=== PATIENT | male | born 1935 | race African-American/Black ===

== ENCOUNTER 2016-12-16 08:13 | Inpatient (IN) | payer MEDICARE, MEDICAID ==
[~2016-12-16] VITALS: Ht 172.7 cm; Wt 56.2 kg
[2016-12-16] VITALS (15 sets, daily range): BP systolic 86–133; BP diastolic 50–79
[2016-12-16] MEDS ORDERED: AMIKACIN IV ONE (08:30)
[2016-12-16] MEDS ORDERED: NS 1000ml 2,200 ML IVLG ONE (08:30)
[2016-12-16] MEDS ORDERED: NS IV ONE (08:30)
[2016-12-16] MEDS ORDERED: Vancomycin 1.5gm/D5W 300ml 325 ML IVPB ONE (08:30)
--- NOTE | 2016-12-16 08:38 | Emergency Room Report ---
History of Present Illness General Chief Complaint: Altered Level of Consciousness Source: Medical Record Present Illness HPI Patient presents from nursing facility in acute respiratory failure Patient's tachypneic Decreased and shallow breath sounds Absence of any Reflex Patient also presents with high fever Patient is nonverbal, history of present illness is limited Upon arrival the patient required central line in airway intubation placement Please note for specifics Patient has multiple comorbidities including decubitus ulcers Right lower extremity amputation Unknown exactly the duration of onset of symptoms The patient appeared to be altered and febrile and sent to the ER by paramedics Allergies: Coded Allergies: CODEINE (Unverified Allergy, Unknown, 12/16/16) Patient History Limited by: medical condition Past Medical History: see triage record Pertinent Family History: unable to obtain Reviewed Nursing Documentation: PMH: Agreed, PSxH: Agreed Nursing Documentation-PMH Past Medical History: No History, Except For Hx Hypertension: Yes Hx Neurological Problems: Yes - Parkinson's BPH Hx Cerebrovascular Accident: Yes Review of Systems All Other Systems: limited - Other than the ones mentioned in the history of present illness all others are reviewed however they do stay limited due to the patient's mental status Physical Exam Vital Signs Date Time Temp Pulse Resp B/P Pulse Ox O2 Delivery O2 Flow Rate FiO2 12/16/16 08:10 100.9 122 28 120/64 97 Non-Rebreather 15.0 Sp02 EP Interpretation: reviewed, normal General Appearance: severe distress - Patient impending respiratory failure, absent gag reflex Head: normocephalic, atraumatic Eyes: bilateral eye PERRL - sluggishly ENT: dry mucus membranes Neck: supple, thyroid normal Respiratory: decreased breath sounds - Impending respiratory failure, decreased breath sounds, no gag reflex Cardiovascular #1: no edema, tachycardia Gastrointestinal: soft, no mass Musculoskeletal: other - Right below the hip amputation, patient has mild flexure of the left upper extremity, otherwise does not move or respond to stimuli Neurologic: other - GCS of 3 Skin: other - decubitus ulcers Lymphatic: no adenopathy Procedures Critical Care Time Critical Care Time 50 minutes for initial critical presentation Multiple reevaluation Speaking with lead front end developer not including any procedural time Central Line Central Line : Consent: Emergent Central Line Lumen: triple Maximal Sterile Barrier Tech: yes cap, yes mask, yes sterile gown, yes sterile gloves, yes large sterile sheet, yes hand hygiene, yes chlorhexidine prep Central Line Postion: femoral (L) Anesthesia: Lidocaine cc's of anesthesia: 2 Complications: none Central Line Post Position: sutured Attempts: One Patient Tolerated: Well Complications: None Intubation Intubation : Consent: Emergent Tube Size (cm): 8.5 Medications: Succinylcholine Breath Sounds after Intubation: equal Intubation Complications: no complications Post Intubation Xray: Yes Progress/Xray Impression: refer to report Attempts: One Patient Tolerated: Well Complications: None Medical Decision Making Diagnostic Impression: Primary Impression: Severe sepsis Additional Impressions: Respiratory failure Pneumonia ER Course Patient presents in acute respiratory distress/failure Multiple differentials, including but not limited to sepsis, severe sepsis, metabolic pathology entertained Patient did have a documented fever her Meet criteria for severe sepsis with high white blood for count and lactic acid Patient was also initially hypotensive Acute intervention is taken Initially CT scan of the head also want to be obtained however patient is extremely critical and unstable for CAT scan imaging at this time Patient him in to ICU for further inpatient care, Labs Test 12/16/16 08:15 12/16/16 08:30 12/16/16 09:18 12/16/16 09:20 White Blood Count 12.7 K/UL (4.8-10.8) Red Blood Count 4.03 M/UL (4.70-6.10) Hemoglobin 9.5 G/DL (14.2-18.0) Hematocrit 32.6 % (42.0-52.0) Mean Corpuscular Volume 81 FL (80-99) Mean Corpuscular Hemoglobin 23.7 PG (27.0-31.0) Mean Corpuscular Hemoglobin Concent 29.3 G/DL (32.0-36.0) Red Cell Distribution Width 17.8 % (11.6-14.8) Platelet Count 607 K/UL (150-450) Mean Platelet Volume 5.1 FL (6.5-10.1) Neutrophils (%) (Auto) % (45.0-75.0) Lymphocytes (%) (Auto) % (20.0-45.0) Monocytes (%) (Auto) % (1.0-10.0) Eosinophils (%) (Auto) % (0.0-3.0) Basophils (%) (Auto) % (0.0-2.0) Differential Total Cells Counted 100 Neutrophils % (Manual) 87 % (45-75) Lymphocytes % (Manual) 8 % (20-45) Monocytes % (Manual) 1 % (1-10) Eosinophils % (Manual) 0 % (0-3) Basophils % (Manual) 0 % (0-2) Band Neutrophils 4 % (0-8) Platelet Estimate Increased Platelet Morphology Normal Hypochromasia 1+ Anisocytosis 1+ Prothrombin Time 12.5 SEC (9.30-11.50) Prothromb Time International Ratio 1.2 (0.9-1.1) Activated Partial Thromboplast Time 29 SEC (23-33) Sodium Level 150 mEQ/L (135-145) Potassium Level 4.3 mEQ/L (3.4-4.9) Chloride Level 109 mEQ/L (98-107) Carbon Dioxide Level 19 mEQ/L (20-30) Anion Gap 22 (5-15) Blood Urea Nitrogen 30 mg/dL (7-23) Creatinine 0.9 mg/dL (0.7-1.2) Estimat Glomerular Filtration Rate mL/min (>60) Glucose Level 153 mg/dL (74-106) Lactic Acid Level 5.00 mmol/L (0.66-2.22) 3.90 mmol/L (0.66-2.22) Calcium Level 8.5 mg/dL (8.6-10.2) Total Bilirubin 0.4 mg/dL (0.0-1.2) Aspartate Amino Transf (AST/SGOT) 39 U/L (5-40) Alanine Aminotransferase (ALT/SGPT) 23 U/L (3-41) Alkaline Phosphatase 437 U/L (40-129) Total Creatine Kinase 116 U/L (38-174) Creatine Kinase MB < 1.5 ng/mL (< 6.7) Creatine Kinase MB Relative Index 1.2 Troponin I < 0.30 ng/mL (<=0.30) Pro-B-Type Natriuretic Peptide 1429 pg/mL (0-450) Total Protein 6.4 g/dL (6.6-8.7) Albumin 2.5 g/dL (3.5-5.2) Globulin 3.9 g/dL Albumin/Globulin Ratio 0.6 (1.0-2.7) Lipase 9 U/L (< 60) Urine Color Yellow Urine Appearance Clear Urine pH 6 (4.5-8.0) Urine Specific [place] 1.015 (1.005-1.035) Urine Protein 3+ (NEGATIVE) Urine Glucose (UA) Negative (NEGATIVE) Urine Ketones Negative (NEGATIVE) Urine Occult Blood 4+ (NEGATIVE) Urine Nitrite Negative (NEGATIVE) Urine Bilirubin Negative (NEGATIVE) Urine Urobilinogen 1 MG/DL (0.0-1.0) Urine Leukocyte Esterase 2+ (NEGATIVE) Urine RBC 2-4 /HPF (0 - 0) Urine WBC 10-15 /HPF (0 - 0) Urine Squamous Epithelial Cells Few /LPF (NONE/OCC) Urine Bacteria Few /HPF (NONE) Arterial Blood pH 7.440 (7.350-7.450) Arterial Blood Partial Pressure CO2 24.5 mmHg (35.0-45.0) Arterial Blood Partial Pressure O2 339.2 mmHg (75.0-100.0) Arterial Blood HCO3 16.5 mmol/L (22.0-26.0) Arterial Blood Oxygen Saturation 99.4 % (92.0-98.0) Arterial Blood Base Excess -6.5 Nolberto Test Positive Test 12/17/16 04:30 White Blood Count 12.9 K/UL (4.8-10.8) Red Blood Count 3.01 M/UL (4.70-6.10) Hemoglobin 7.2 G/DL (14.2-18.0) Hematocrit 24.2 % (42.0-52.0) Mean Corpuscular Volume 80 FL (80-99) Mean Corpuscular Hemoglobin 23.9 PG (27.0-31.0) Mean Corpuscular Hemoglobin Concent 29.7 G/DL (32.0-36.0) Red Cell Distribution Width 17.9 % (11.6-14.8) Platelet Count 393 K/UL (150-450) Mean Platelet Volume 4.9 FL (6.5-10.1) Neutrophils (%) (Auto) % (45.0-75.0) Lymphocytes (%) (Auto) % (20.0-45.0) Monocytes (%) (Auto) % (1.0-10.0) Eosinophils (%) (Auto) % (0.0-3.0) Basophils (%) (Auto) % (0.0-2.0) Sodium Level 150 mEQ/L (135-145) Potassium Level 3.5 mEQ/L (3.4-4.9) Chloride Level 113 mEQ/L (98-107) Carbon Dioxide Level 17 mEQ/L (20-30) Anion Gap 20 (5-15) Blood Urea Nitrogen 22 mg/dL (7-23) Creatinine 0.8 mg/dL (0.7-1.2) Estimat Glomerular Filtration Rate mL/min (>60) Glucose Level 108 mg/dL (74-106) Lactic Acid Level 3.70 mmol/L (0.66-2.22) Calcium Level 8.4 mg/dL (8.6-10.2) EKG Diagnostic Results Rate: tachycardiac Rhythm: other ST Segments: other - nonspecific ST and T-wave changes Rhythm Strip Diag. Results EP Interpretation: yes Rate: 110 Rhythm: no PVC's, no ectopy, other - sinus tach Chest X-Ray Diagnostic Results EP Interpretation: Yes Findings: no effusion, no pneumothorax, other - ET tube above the gia, left upper lobe infiltrate no acute bony abnormalities Number of Views: 1 Last Vital Signs Date Time Temp Pulse Resp B/P Pulse Ox O2 Delivery O2 Flow Rate FiO2 12/16/16 08:19 122 20 104/59 12/16/16 08:10 100.9 97 Non-Rebreather 15.0 Status: improved Disposition: ADMITTED INPATIENT Condition: Critical AMEYA DAIGLE D.O. December 16, 2016 08:37
[2016-12-16] MEDS ORDERED: Amikacin 500mg/2mL Inj ONE (08:52)
[2016-12-16 08:53] LABS: MEAN CORPUSCULAR HEMOGLOBIN 23.7 PG (27.0-31.0); MEAN CORPUSCULAR HGB CONC 29.3 G/DL (32.0-36.0); MEAN CORPUSCULAR VOLUME 81 FL (80-99); MEAN PLATELET VOLUME 5.1 FL (6.5-10.1); PLATELET COUNT 607 K/UL (150-450); RED BLOOD COUNT 4.03 M/UL (4.70-6.10); RED CELL DISTRIBUTION WIDTH 17.8 % (11.6-14.8); WHITE BLOOD COUNT 12.7 K/UL (4.8-10.8)
[2016-12-16 09:04] LABS: APPEARANCE,URINE CLEAR; KETONES,URINE NEGATIVE (NEGATIVE); LEUKOCYTE ESTERASE ,URINE 2+ (NEGATIVE); NITRITE,URINE NEGATIVE (NEGATIVE); PH,URINE 6 (4.5-8.0); PROTEIN,URINE 3+ (NEGATIVE); UROBILINOGEN,URINE 1 MG/DL (0.0-1.0)
[2016-12-16 09:08] LABS: TROPONIN I < 0.30 ng/mL (<=0.30)
[2016-12-16 09:09] LABS: ALANINE AMINOTRANSFERASE 23 U/L (3-41); ALBUMIN/GLOBULIN RATIO 0.6 (1.0-2.7); ANION GAP 22 (5-15); ASPARTATE AMINO TRANSFERASE 39 U/L (5-40); CALCIUM 8.5 mg/dL (8.6-10.2); CARBON DIOXIDE 19 mEQ/L (20-30); CHLORIDE 109 mEQ/L (98-107); CREATININE 0.9 mg/dL (0.7-1.2); HEMOLYSIS 7; LIPASE 9 U/L (< 60); POTASSIUM 4.3 mEQ/L (3.4-4.9); SODIUM 150 mEQ/L (135-145); TOTAL PROTEIN 6.4 g/dL (6.6-8.7)
[2016-12-16 09:14] LABS: INR 1.2 (0.9-1.1); PROTHROMBIN TIME 12.5 SEC (9.30-11.50)
[2016-12-16 09:17] LABS: REFLEX LACTIC ACID YES OR NO YES
[2016-12-16 09:18] LABS: BACTERIA,URINE FEW /HPF; SQUAMOUS EPITHELIAL CELL,UR FEW /LPF (NONE/OCC)
[2016-12-16 09:19] LABS: CKMB < 1.5 ng/mL (< 6.7)
[2016-12-16 09:21] LABS: ABG PCO2 24.5 mmHg (35.0-45.0)
[2016-12-16 09:22] LABS: ABG ALLEN TEST POSITIVE; ABG BASE EXCESS -6.5
[2016-12-16 10:06] LABS: ANISOCYTOSIS 1+; BAND NEUTROPHILS % (MANUAL) 4 % (0-8); BASOPHILS % (MANUAL) 0 % (0-2); EOSINOPHILS % (MANUAL) 0 % (0-3); HYPOCHROMASIA 1+; LYMPHOCYTES % (MANUAL) 8 % (20-45); NEUTROPHILS % (MANUAL) 87 % (45-75); PLATELET ESTIMATE INCREASED; PLATELET MORPHOLOGY NORMAL; TOTAL CELLS COUNTED 100
[2016-12-16] MEDS ORDERED: METOPROLOL TART50 M1 ORAL (10:20)
[2016-12-16] MEDS ORDERED: PROSCAR5 MG ORAL (10:20)
[2016-12-16] MEDS ORDERED: POTASSIUM CHLO10 ME3 ORAL (10:20)
[2016-12-16] MEDS ORDERED: NORCO 5-325 TA1 EAC1 ORAL (10:20)
[2016-12-16] MEDS ORDERED: SINEMET 25-1001 EAC1 ORAL (10:20)
[2016-12-16] MEDS ORDERED: FLEET ENEMA133 ML RECTAL (10:20)
[2016-12-16] MEDS ORDERED: SENNA8.6 M2 PO (10:20)
[2016-12-16] MEDS ORDERED: SIMETHICONE80 MG ORAL (10:20)
[2016-12-16] MEDS ORDERED: ALBUTEROL2.5 MG/3 M INH (10:20)
[2016-12-16] MEDS ORDERED: MIRALAX17 G2 ORAL (10:20)
[2016-12-16] MEDS ORDERED: COLACE100 MG ORAL (10:20)
[2016-12-16] MEDS ORDERED: DULCOLAX10 MG RC (10:20)
[2016-12-16] MEDS ORDERED: TRAMADOL HCL50 MG ORAL (10:20)
[2016-12-16] MEDS ORDERED: MIRTAZAPINE15 MG ORAL (10:20)
[2016-12-16] MEDS ORDERED: TAMSULOSIN HCL0.4 MG ORAL (10:20)
[2016-12-16] MEDS ORDERED: ZOCOR20 M1 ORAL (10:20)
[2016-12-16] MEDS ORDERED: ZOFRAN4 M1 ORAL (10:20)
[2016-12-16] MEDS ORDERED: PRO-STAT LIQUID30 ML ORAL (10:20)
[2016-12-16] MEDS ORDERED: MULTIVITAMINS1 EAC8 ORAL (10:20)
[2016-12-16] MEDS ORDERED: SORBITOL 70%30 ML PO (10:20)
[2016-12-16] MEDS ORDERED: PROTONIX40 MG ORAL (10:20)
[2016-12-16] MEDS ORDERED: ARTIFICIAL TEAR15 M2 OP (10:20)
[2016-12-16] MEDS ORDERED: PLAVIX75 MG ORAL (10:20)
[2016-12-16] MEDS ORDERED: TYLENOL650 MG/20. ORAL (10:20)
--- NOTE | 2016-12-16 11:44 | Diagnostic Imaging Report ---
Indication: Chest Pain Comparison: 5 [id number] A single view chest radiograph was obtained. Findings: Infiltrate in the left upper lobe demonstrated. There is hazy left basilar opacity present. Endotracheal tube is 2 cm above the gia. Some shifting of the heart to the left noted as well indicative of volume loss. Bones are osteopenic. Impression: Left basilar atelectasis and suspected pleural effusion. Left perihilar and upper lobe infiltrate likely pneumonia. Endotracheal tube in good position
[2016-12-16] MEDS ORDERED: Norco 5mg/325mg tab ORAL PRN (13:30)
[2016-12-16] MEDS ORDERED: Simethicone 80mg tab NG PRN (13:30)
[2016-12-16] MEDS ORDERED: Albuterol ud Inhalation HHN PRN (13:30)
[2016-12-16] MEDS ORDERED: traMADol 50mg tab NG PRN (13:30)
[2016-12-16] MEDS ORDERED: Norco 5mg/325mg tab NG PRN (14:09)
[2016-12-16] MEDS ORDERED: Acetaminophen 650mg/20.3ml GT PRN (14:15)
[2016-12-16] MEDS ORDERED: Succinylcholine 20mg/ml 10ml vial ONE (14:50)
[2016-12-16] MEDS: Sinemet 25/100 tab NG SCH (17:15)
[2016-12-16] MEDS: Artificial Tears 1.4% Op Soln BOTH EYES SCH (17:15)
[2016-12-16] MEDS: Docusate 100mg/10ml Liq GT SCH (17:15)
[2016-12-16] MEDS ORDERED: Sorbitol Solution UD 30ml NG PRN (18:00)
[2016-12-16] MEDS: Metoprolol 50mg tab NG SCH (18:00)
[2016-12-16] MEDS ORDERED: Docusate 250mg cap ORAL SCH (18:00)
[2016-12-16] MEDS ORDERED: Piperacillin/Tazobactam 3.375 GM in D5W 110 ML IVPB SCH (18:00)
--- NOTE | 2016-12-16 19:28 | Consultation ---
DATE OF CONSULTATION: 12/16/2016 INFECTIOUS DISEASES CONSULTATION CONSULTING PHYSICIAN: Jessica Thomas M.D. REFERRING PHYSICIAN: Javad Knight M.D. REASON FOR CONSULTATION: Pneumonia. HISTORY OF PRESENTING ILLNESS: This is an 81-year-old gentleman with history of decubitus ulcers, status post right leg amputation, Parkinson disease, hypertension, and CVA, who came in with decreased and shallow breath sounds. He has been intubated in the ER and an Infectious Diseases consultation has been obtained for antibiotics. PAST MEDICAL HISTORY: 1. History of hypertension. 2. Parkinson disease. 3. Benign prostatic hypertrophy. 4. CVA. MEDICATIONS: In the ER, he has received intravenous vancomycin and amikacin. ALLERGIES: He is allergic to codeine. SOCIAL HISTORY: Unknown. FAMILY HISTORY: Unknown. REVIEW OF SYSTEMS: Unable to obtain currently. PHYSICAL EXAMINATION: VITAL SIGNS: Temperature of 98.3 degrees, T-max of 100.9 degrees, pulse of 115, respiratory rate 20, blood pressure 133/79, and O2 saturation of 98%. HEENT: Pupils equally reactive to light and accommodation. Mouth appears clean without thrush. NECK: Supple. No adenopathy. No JVD. CARDIOVASCULAR: Regular rate and rhythm. No murmurs. LUNGS: Clear to auscultation bilaterally. No crackles. No wheezes. ABDOMEN: Soft and nontender. No organomegaly. EXTREMITIES: No cyanosis, no clubbing, no edema. Right stump at the hip is clean. Left groin catheter noted. LABORATORY DATA: White count 12.7, hemoglobin 9.5, hematocrit 32.6, MCV 81, platelet count of 607,000, and neutrophils of 87%. Sodium 150, potassium 4.3, chloride 109, bicarb 19, BUN 30, creatinine 0.9, glucose 153, and calcium 8.5. Total bilirubin 0.4. AST 39, ALT 23, and alkaline phosphatase 437. CK of 116 and CK-MB less than 1.5. Troponin less than 0.3. Beta natriuretic peptide 1429. Total protein 6.4. Albumin 2.5. Lipase of 9. Urine WBCs 10 to 15. Urine cultures are pending. Blood cultures are pending. ASSESSMENT: 1. This is an 81-year-old gentleman with history of hypertension and Parkinson's disease, who comes in with respiratory failure. 2. We would like to rule out pneumonia as a possibility. 3. We would also like to rule out urinary tract infection as a possibility. PLAN: 1. Start the patient on vancomycin and Zosyn. 2. We will order sputum for Gram stain and culture. 3. We will follow up cultures and adjust antibiotics accordingly. I would like to thank, Dr. Knight, for this consultation. Jessica Thomas M.D. DR: DANNI JOB#: [id number] CC: Javad Knight M.D.; Fax#: [phone]
[2016-12-16] MEDS ORDERED: Zolpidem 5mg tab NG PRN (21:00)
[2016-12-16] MEDS: Vancomycin 750mg/D5W 275ml IVPB SCH ×2 (21:11)
[2016-12-16] MEDS: Heparin 5000 units/ml inj SUBQ SCH (21:12)
[2016-12-16] MEDS: Tamsulosin 0.4mg cap NGT SCH (21:16)
[2016-12-17] VITALS (18 sets, daily range): BP systolic 67–110; BP diastolic 47–66
[2016-12-17] MEDS: Metoprolol 50mg tab NG SCH ×2 (05:37→18:33)
[2016-12-17 06:38] LABS: MEAN CORPUSCULAR HEMOGLOBIN 23.9 PG (27.0-31.0); MEAN CORPUSCULAR HGB CONC 29.7 G/DL (32.0-36.0); MEAN CORPUSCULAR VOLUME 80 FL (80-99); MEAN PLATELET VOLUME 4.9 FL (6.5-10.1); PLATELET COUNT 393 K/UL (150-450); RED BLOOD COUNT 3.01 M/UL (4.70-6.10); RED CELL DISTRIBUTION WIDTH 17.9 % (11.6-14.8); WHITE BLOOD COUNT 12.9 K/UL (4.8-10.8)
[2016-12-17 07:25] LABS: REFLEX LACTIC ACID YES OR NO YES
[2016-12-17 07:31] LABS: ANION GAP 20 (5-15); CALCIUM 8.4 mg/dL (8.6-10.2); CARBON DIOXIDE 17 mEQ/L (20-30); CHLORIDE 113 mEQ/L (98-107); CREATININE 0.8 mg/dL (0.7-1.2); HEMOLYSIS 2; POTASSIUM 3.5 mEQ/L (3.4-4.9); SODIUM 150 mEQ/L (135-145)
--- NOTE | 2016-12-17 08:01 | History & Physical ---
History and Physical History & Physicial HISTORY OF PRESENTING ILLNESS: Chronically ill 81-year-old gentleman with history of Parkinsons disease, hypertension, and CVA, who came in with respiratory failure and sepsis. Patient intubated in the ER and admitted to ICU for ventilator management and antibiotics PAST MEDICAL HISTORY: 1. History of hypertension. 2. Parkinson disease. 3. Benign prostatic hypertrophy. 4. CVA. 5. Right leg amputation 6. decubitus ulcers MEDICATIONS: reviewed ALLERGIES: codeine. SOCIAL HISTORY: Unknown. FAMILY HISTORY: Unknown. REVIEW OF SYSTEMS: Unable PHYSICAL EXAMINATION: VITAL SIGNS: reviewed HEENT: Pupils equally reactive to light and accommodation. intubated NECK: Supple. No adenopathy. No JVD. CARDIOVASCULAR: Regular rate and rhythm. No murmurs. LUNGS: coarse breath sounds ABDOMEN: Soft and nontender. No organomegaly. EXTREMITIES: No cyanosis, no clubbing, no edema. Right stump at the hip is clean. Left groin catheter noted. LABORATORY DATA: Labs Test 12/16/16 08:15 12/16/16 08:30 12/16/16 09:18 12/16/16 09:20 White Blood Count 12.7 K/UL (4.8-10.8) Red Blood Count 4.03 M/UL (4.70-6.10) Hemoglobin 9.5 G/DL (14.2-18.0) Hematocrit 32.6 % (42.0-52.0) Mean Corpuscular Volume 81 FL (80-99) Mean Corpuscular Hemoglobin 23.7 PG (27.0-31.0) Mean Corpuscular Hemoglobin Concent 29.3 G/DL (32.0-36.0) Red Cell Distribution Width 17.8 % (11.6-14.8) Platelet Count 607 K/UL (150-450) Mean Platelet Volume 5.1 FL (6.5-10.1) Neutrophils (%) (Auto) % (45.0-75.0) Lymphocytes (%) (Auto) % (20.0-45.0) Monocytes (%) (Auto) % (1.0-10.0) Eosinophils (%) (Auto) % (0.0-3.0) Basophils (%) (Auto) % (0.0-2.0) Differential Total Cells Counted 100 Neutrophils % (Manual) 87 % (45-75) Lymphocytes % (Manual) 8 % (20-45) Monocytes % (Manual) 1 % (1-10) Eosinophils % (Manual) 0 % (0-3) Basophils % (Manual) 0 % (0-2) Band Neutrophils 4 % (0-8) Platelet Estimate Increased Platelet Morphology Normal Hypochromasia 1+ Anisocytosis 1+ Prothrombin Time 12.5 SEC (9.30-11.50) Prothromb Time International Ratio 1.2 (0.9-1.1) Activated Partial Thromboplast Time 29 SEC (23-33) Sodium Level 150 mEQ/L (135-145) Potassium Level 4.3 mEQ/L (3.4-4.9) Chloride Level 109 mEQ/L (98-107) Carbon Dioxide Level 19 mEQ/L (20-30) Anion Gap 22 (5-15) Blood Urea Nitrogen 30 mg/dL (7-23) Creatinine 0.9 mg/dL (0.7-1.2) Estimat Glomerular Filtration Rate mL/min (>60) Glucose Level 153 mg/dL (74-106) Lactic Acid Level 5.00 mmol/L (0.66-2.22) 3.90 mmol/L (0.66-2.22) Calcium Level 8.5 mg/dL (8.6-10.2) Total Bilirubin 0.4 mg/dL (0.0-1.2) Aspartate Amino Transf (AST/SGOT) 39 U/L (5-40) Alanine Aminotransferase (ALT/SGPT) 23 U/L (3-41) Alkaline Phosphatase 437 U/L (40-129) Total Creatine Kinase 116 U/L (38-174) Creatine Kinase MB < 1.5 ng/mL (< 6.7) Creatine Kinase MB Relative Index 1.2 Troponin I < 0.30 ng/mL (<=0.30) Pro-B-Type Natriuretic Peptide 1429 pg/mL (0-450) Total Protein 6.4 g/dL (6.6-8.7) Albumin 2.5 g/dL (3.5-5.2) Globulin 3.9 g/dL Albumin/Globulin Ratio 0.6 (1.0-2.7) Lipase 9 U/L (< 60) Urine Color Yellow Urine Appearance Clear Urine pH 6 (4.5-8.0) Urine Specific [place] 1.015 (1.005-1.035) Urine Protein 3+ (NEGATIVE) Urine Glucose (UA) Negative (NEGATIVE) Urine Ketones Negative (NEGATIVE) Urine Occult Blood 4+ (NEGATIVE) Urine Nitrite Negative (NEGATIVE) Urine Bilirubin Negative (NEGATIVE) Urine Urobilinogen 1 MG/DL (0.0-1.0) Urine Leukocyte Esterase 2+ (NEGATIVE) Urine RBC 2-4 /HPF (0 - 0) Urine WBC 10-15 /HPF (0 - 0) Urine Squamous Epithelial Cells Few /LPF (NONE/OCC) Urine Bacteria Few /HPF (NONE) Arterial Blood pH 7.440 (7.350-7.450) Arterial Blood Partial Pressure CO2 24.5 mmHg (35.0-45.0) Arterial Blood Partial Pressure O2 339.2 mmHg (75.0-100.0) Arterial Blood HCO3 16.5 mmol/L (22.0-26.0) Arterial Blood Oxygen Saturation 99.4 % (92.0-98.0) Arterial Blood Base Excess -6.5 Nolberto Test Positive Test 12/17/16 04:30 White Blood Count 12.9 K/UL (4.8-10.8) Red Blood Count 3.01 M/UL (4.70-6.10) Hemoglobin 7.2 G/DL (14.2-18.0) Hematocrit 24.2 % (42.0-52.0) Mean Corpuscular Volume 80 FL (80-99) Mean Corpuscular Hemoglobin 23.9 PG (27.0-31.0) Mean Corpuscular Hemoglobin Concent 29.7 G/DL (32.0-36.0) Red Cell Distribution Width 17.9 % (11.6-14.8) Platelet Count 393 K/UL (150-450) Mean Platelet Volume 4.9 FL (6.5-10.1) Neutrophils (%) (Auto) % (45.0-75.0) Lymphocytes (%) (Auto) % (20.0-45.0) Monocytes (%) (Auto) % (1.0-10.0) Eosinophils (%) (Auto) % (0.0-3.0) Basophils (%) (Auto) % (0.0-2.0) Sodium Level 150 mEQ/L (135-145) Potassium Level 3.5 mEQ/L (3.4-4.9) Chloride Level 113 mEQ/L (98-107) Carbon Dioxide Level 17 mEQ/L (20-30) Anion Gap 20 (5-15) Blood Urea Nitrogen 22 mg/dL (7-23) Creatinine 0.8 mg/dL (0.7-1.2) Estimat Glomerular Filtration Rate mL/min (>60) Glucose Level 108 mg/dL (74-106) Lactic Acid Level 3.70 mmol/L (0.66-2.22) Calcium Level 8.4 mg/dL (8.6-10.2) ASSESSMENT: 1. History of hypertension. 2. Parkinson disease. 3. Benign prostatic hypertrophy. 4. CVA. 5. Right leg amputation 6. decubitus ulcers 7. sepsis 8. lactic acidemia 9. anemia 10. hypernatremia PLAN transfuse iv antibiotics ventilator management feeds hypotonic fluids transfer to [facility] when stable MEAGHAN CARD December 17, 2016 08:01
[2016-12-17] MEDS ORDERED: Multivitamin w/Minerals tab ORAL SCH (09:00)
[2016-12-17] MEDS ORDERED: Fleet's Enema 133ml RECTAL PRN (09:00)
[2016-12-17] MEDS: Heparin 5000 units/ml inj SUBQ SCH ×2 (09:00→21:08)
[2016-12-17 09:47] LABS: MEAN CORPUSCULAR HEMOGLOBIN 23.8 PG (27.0-31.0); MEAN CORPUSCULAR HGB CONC 29.6 G/DL (32.0-36.0); MEAN CORPUSCULAR VOLUME 80 FL (80-99); PLATELET COUNT 392 K/UL (150-450); RED BLOOD COUNT 3.03 M/UL (4.70-6.10); RED CELL DISTRIBUTION WIDTH 17.9 % (11.6-14.8); WHITE BLOOD COUNT 13.3 K/UL (4.8-10.8)
--- NOTE | 2016-12-17 09:51 | Infectious Diseases Prog Note ---
Assessment/Plan Assessment/Plan A: Sepsis Pneumonia UTI Respiratory failure Lactic acidosis BPH Parkinson disease P; Continue Zosyn & Vancomycin Will f/u cultures Subjective ROS Limited/Unobtainable: Yes Allergies: Coded Allergies: CODEINE (Unverified Allergy, Unknown, 12/16/16) Objective Vital Signs Last 24 Hour Vital Signs Date Time Temp Pulse Resp B/P Pulse Ox O2 Delivery O2 Flow Rate FiO2 12/17/16 09:13 99 25 30 12/17/16 07:00 100 19 99/55 100 Mechanical Ventilator 30 12/17/16 06:55 104 29 30 12/17/16 06:00 100 20 110/56 100 Mechanical Ventilator 30 12/17/16 05:37 99 93/47 12/17/16 05:14 100 24 30 12/17/16 05:00 99 12 93/47 100 Mechanical Ventilator 30 12/17/16 04:00 98.9 100 26 98/62 100 Mechanical Ventilator 30 12/17/16 04:00 30 12/17/16 04:00 99 12/17/16 03:17 105 24 30 12/17/16 03:00 100 24 96/55 100 Mechanical Ventilator 30 12/17/16 02:00 99 26 101/61 100 Mechanical Ventilator 30 12/17/16 01:00 101 26 97/54 100 Mechanical Ventilator 30 12/17/16 00:44 97 27 30 12/17/16 00:00 98.3 99 30 90/54 100 Mechanical Ventilator 30 12/17/16 00:00 99 12/17/16 00:00 30 12/16/16 23:00 101 30 86/56 100 Mechanical Ventilator 30 12/16/16 22:48 102 31 30 12/16/16 22:00 101 26 92/57 100 Mechanical Ventilator 30 12/16/16 21:00 30 12/16/16 21:00 105 26 92/57 100 Mechanical Ventilator 30 12/16/16 20:51 105 28 30 12/16/16 20:02 99.1 12/16/16 20:00 98.3 110 25 92/52 100 Mechanical Ventilator 40 12/16/16 20:00 109 12/16/16 19:07 110 26 104/58 100 Mechanical Ventilator 30 12/16/16 18:46 111 25 30 12/16/16 18:01 112 26 95/52 100 Mechanical Ventilator 30 12/16/16 18:00 115 95/52 12/16/16 17:15 111 24 30 12/16/16 17:13 30.0 12/16/16 17:00 112 26 94/52 100 Mechanical Ventilator 30 12/16/16 16:00 114 12/16/16 16:00 98.5 114 25 92/52 100 Mechanical Ventilator 40 12/16/16 15:19 114 27 30 12/16/16 15:02 112 25 93/52 100 Mechanical Ventilator 40 12/16/16 14:57 35.0 12/16/16 14:00 113 25 92/52 100 Mechanical Ventilator 40 12/16/16 13:00 115 24 95/50 100 Mechanical Ventilator 40 12/16/16 12:52 118 29 35 12/16/16 12:00 114 26 100/53 100 Mechanical Ventilator 40 12/16/16 11:52 115 12/16/16 11:50 40.0 12/16/16 11:47 98.0 115 21 101/55 100 Mechanical Ventilator 40 12/16/16 11:26 123 34 40 12/16/16 10:56 98.3 115 20 133/79 98 Mechanical Ventilator 15.0 40 12/16/16 10:34 98.3 115 20 133/79 98 Mechanical Ventilator Height (Feet): 5 Height (Inches): 8.00 Weight (Pounds): 124 HEENT: other - orally intubated Respiratory/Chest: lungs clear, decreased breath sounds, other - on ventilator Cardiovascular: tachycardia Abdomen: soft, non tender, other - NG tube Extremities: no edema, other - right AKA Neurologic/Psychiatric: unresponsiveness Microbiology Date/Time Source Procedure Growth Status 12/16/16 08:30 Urine,Clean Catch Urine Culture - Preliminary Gram Negative Nolberto Resulted Laboratory Tests Test 12/17/16 04:30 12/17/16 08:30 White Blood Count 12.9 K/UL (4.8-10.8) H Pending Red Blood Count 3.01 M/UL (4.70-6.10) L Pending Hemoglobin 7.2 G/DL (14.2-18.0) L Pending Hematocrit 24.2 % (42.0-52.0) L Pending Mean Corpuscular Volume 80 FL (80-99) Pending Mean Corpuscular Hemoglobin 23.9 PG (27.0-31.0) L Pending Mean Corpuscular Hemoglobin Concent 29.7 G/DL (32.0-36.0) L Pending Red Cell Distribution Width 17.9 % (11.6-14.8) H Pending Platelet Count 393 K/UL (150-450) Pending Mean Platelet Volume 4.9 FL (6.5-10.1) L Pending Neutrophils (%) (Auto) % (45.0-75.0) Pending Lymphocytes (%) (Auto) % (20.0-45.0) Pending Monocytes (%) (Auto) % (1.0-10.0) Pending Eosinophils (%) (Auto) % (0.0-3.0) Pending Basophils (%) (Auto) % (0.0-2.0) Pending Neutrophils % (Manual) Pending Lymphocytes % (Manual) Pending Platelet Estimate Pending Platelet Morphology Pending Sodium Level 150 mEQ/L (135-145) H Potassium Level 3.5 mEQ/L (3.4-4.9) Chloride Level 113 mEQ/L (98-107) H Carbon Dioxide Level 17 mEQ/L (20-30) L Anion Gap 20 (5-15) H Blood Urea Nitrogen 22 mg/dL (7-23) Creatinine 0.8 mg/dL (0.7-1.2) Estimat Glomerular Filtration Rate mL/min (>60) Glucose Level 108 mg/dL (74-106) H Lactic Acid Level 3.70 mmol/L (0.66-2.22) H Pending Calcium Level 8.4 mg/dL (8.6-10.2) L Current Medications Medications (Trade) Dose Ordered Sig/Trudy Route PRN Reason Start Time Stop Time Status Last Admin Dose Admin Acetaminophen (Tylenol) 650 mg Q4H PRN GT Mild Pain/Temp > 100.5 12/16/16 14:15 01/15/17 14:14 12/16/16 19:32 Acetaminophen/ Hydrocodone Bitart 2 tab 2 tab Q6H PRN NG SEVERE PAIN 12/16/16 14:09 12/23/16 13:29 Al Hydroxide/Mg Hydroxide (Mylanta) 30 ml Q6H PRN NG stomach pain 12/16/16 14:00 01/15/17 13:59 Albuterol Sulfate (Proventil) 2.5 mg Q4HRT PRN HHN Shortness of Breath 12/16/16 13:30 12/21/16 13:29 Artificial Tears (Akwa-Tears) 1 drop THREE TIMES A DAY BOTH EYES 12/16/16 18:00 01/15/17 17:59 12/16/16 17:15 Aspirin (ASA) 81 mg DAILY NG 12/17/16 09:00 01/16/17 08:59 Atorvastatin Calcium (Lipitor) 10 mg BEDTIME NG 12/16/16 21:00 01/15/17 20:59 12/16/16 21:09 Bisacodyl (Dulcolax) 10 mg DAILYPRN PRN RECTAL Constipation 12/16/16 13:30 01/15/17 13:29 Carbidopa/Levodopa (Sinemet 25/100) 1 ea THREE TIMES A DAY NG 12/16/16 18:00 01/15/17 17:59 12/16/16 17:15 Clopidogrel Bisulfate (Plavix) 75 mg DAILY NG 12/17/16 09:00 01/16/17 08:59 Docusate Sodium (Colace) 250 mg BID GT 12/16/16 18:00 01/15/17 17:59 12/16/16 17:15 Finasteride (Proscar) 5 mg DAILY NG 12/17/16 09:00 01/16/17 08:59 Heparin Sodium (Porcine) (Heparin 5000 units/ml) 5,000 units EVERY 12 HOURS SUBQ 12/16/16 21:00 01/15/17 20:59 12/16/16 21:12 Lansoprazole (Prevacid) 30 mg DAILY NG 12/17/16 09:00 01/16/17 08:59 Metoprolol Tartrate (Lopressor) 50 mg Q12H NG 12/16/16 18:00 01/15/17 17:59 Mirtazapine (Remeron) 15 mg BEDTIME NG 12/16/16 21:00 01/15/17 20:59 12/16/16 21:09 Multivitamins (Multivitamins W/ Minerals 15ml Liquid) 15 ml DAILY GT 12/17/16 09:00 01/16/17 08:59 Ondansetron HCl (Zofran) 4 mg Q6H PRN NG Nausea & Vomiting 12/16/16 13:57 01/15/17 13:29 Piperacillin Sod/ Tazobactam Sod 3.375 gm/Dextrose 100 ml @ 25 mls/hr EVERY 8 HOURS IV 12/16/16 14:00 12/21/16 13:59 12/17/16 05:50 Polyethylene Glycol (Miralax) 17 gm DAILY NG 12/17/16 09:00 01/16/17 08:59 Potassium Chloride (KCl 10% 20 mEq oral solution) 10 meq DAILY NG 12/17/16 09:00 01/16/17 08:59 Sennosides (Senokot) 17.2 mg BIDPRN PRN NG CONSTIPATION SECOND LINE AGENT 12/16/16 18:00 01/15/17 17:59 Simethicone (Mylicon) 80 mg Q8H PRN NG GAS PAIN 12/16/16 13:30 01/15/17 13:29 Sodium Chloride (0.45% NS 1000ml) 1,000 ml @ 100 mls/hr Q10H IV 12/17/16 08:30 01/16/17 08:29 Sodium Phosphate (Fleet's Sodium Phosl Enema) 133 ml DAILYPRN PRN RECTAL CONSTIPATION THIRD LINE AGENT 12/17/16 09:00 01/16/17 08:59 Sorbitol (Sorbitol) 30 ml BID PRN NG CONSTIPATION 4TH LINE AGENT 12/16/16 18:00 01/15/17 17:59 Tamsulosin HCl (Flomax) 0.8 mg BEDTIME NGT 12/16/16 21:00 01/15/17 20:59 12/16/16 21:16 Tramadol HCl (Ultram) 50 mg Q6H PRN NG MODERATE PAIN 12/16/16 13:30 12/23/16 13:29 Vancomycin HCl 1 ea 1 ea DAILY PRN MISC . 12/16/16 12:00 01/15/17 11:59 Vancomycin HCl/ Dextrose (Vancomycin/D5W) 275 ml @ 183.708 mls/hr Q12HR@0900,2100 IVPB 12/16/16 21:00 12/21/16 20:59 12/16/16 21:11 Zolpidem Tartrate (Ambien) 5 mg HSPRN PRN NG Insomnia 12/16/16 21:00 01/15/17 20:59 [facility] [place] December 17, 2016 09:51
[2016-12-17 09:52] LABS: ABG ALLEN TEST POSITIVE; ABG BASE EXCESS -6.9
[2016-12-17] MEDS ORDERED: NS 275ml ONE (10:02)
[2016-12-17] MEDS: Docusate 100mg/10ml Liq GT SCH ×2 (10:03→18:32)
[2016-12-17] MEDS: Aspirin Baby 81mg NG SCH (10:04)
[2016-12-17] MEDS: Multivitamins W/Minerals 15 ML UDC GT SCH (10:04)
[2016-12-17] MEDS: KCl 10% 20 mEq/15ml liquid NG SCH (10:05)
[2016-12-17] MEDS: Sinemet 25/100 tab NG SCH ×3 (10:06→18:33)
[2016-12-17] MEDS: Miralax 17gm pkt NG SCH (10:11)
[2016-12-17 10:14] LABS: ANISOCYTOSIS 1+; BAND NEUTROPHILS % (MANUAL) 0 % (0-8); BASOPHILS % (MANUAL) 0 % (0-2); EOSINOPHILS % (MANUAL) 0 % (0-3); HYPOCHROMASIA 1+; LYMPHOCYTES % (MANUAL) 5 % (20-45); NEUTROPHILS % (MANUAL) 91 % (45-75); PLATELET ESTIMATE ADEQUATE; PLATELET MORPHOLOGY NORMAL; TOTAL CELLS COUNTED 100
[2016-12-17] MEDS: Vancomycin 750mg/D5W 275ml IVPB SCH ×4 (10:15→21:29)
[2016-12-17] MEDS: Artificial Tears 1.4% Op Soln BOTH EYES SCH ×3 (10:27→18:33)
[2016-12-17 11:14] LABS: ANISOCYTOSIS 1+; BAND NEUTROPHILS % (MANUAL) 0 % (0-8); BASOPHILS % (MANUAL) 0 % (0-2); EOSINOPHILS % (MANUAL) 0 % (0-3); HYPOCHROMASIA 1+; LYMPHOCYTES % (MANUAL) 12 % (20-45); MICROCYTES 1+; NEUTROPHILS % (MANUAL) 84 % (45-75); PLATELET ESTIMATE ADEQUATE; PLATELET MORPHOLOGY NORMAL; TOTAL CELLS COUNTED 100
--- NOTE | 2016-12-17 12:23 | Diagnostic Imaging Report ---
Indication: COPD. Shortness of breath. Intubated. Comparison: 12/16/2016 A single view chest radiograph was obtained. Findings: Atelectasis has improved although there is considerable residual at the left lung base. Left hemidiaphragm remains elevated. Superimposed pneumonia not excluded. Endotracheal tube remain satisfactory in position. Nasogastric tube has been passed and is in good position. Impression: NG tube in good position Moderate left basilar atelectasis, improved over the last 24 hours. Superimposed pneumonia not excluded.
--- NOTE | 2016-12-17 12:25 | Diagnostic Imaging Report ---
Indication: NG tube Comparison: None Single view of the abdomen obtained NG tube is in the past. The tip and proximal port are below the diaphragm and presumed to be in the stomach. There is dense left basilar consolidation or atelectasis noted. Impression: Satisfactory nasogastric tube position
[2016-12-17] MEDS ORDERED: Digoxin 0.5mg/2ml Inj IVP ONE ×2 (20:45→22:00)
[2016-12-17] MEDS: Tamsulosin 0.4mg cap NGT SCH (21:00)
[2016-12-17 21:12] LABS: ABG PCO2 22.2 mmHg (35.0-45.0)
[2016-12-17 21:13] LABS: ABG ALLEN TEST POSITIVE; ABG BASE EXCESS -8.6
[2016-12-17] MEDS: Piperacillin/Tazobactam 3.375 GM in NS 110 ML IV SCH (21:58)
[2016-12-18] VITALS (19 sets, daily range): BP systolic 100–132; BP diastolic 48–74
--- NOTE | 2016-12-18 05:19 | Consultation ---
DATE OF CONSULTATION: 12/17/2016 CARDIOLOGY CONSULTATION CONSULTING PHYSICIAN: Gage Hollingsworth M.D. REASON FOR CONSULTATION: Atrial fibrillation with rapid ventricular response and hypotension. HISTORY OF PRESENT ILLNESS: This 81-year-old male, with multiple medical problems, presented to the emergency room last evening with acute respiratory distress and respiratory failure, and has been intubated, and placed on mechanical ventilation. The patient was febrile, pancultured, and started on broad-spectrum antibiotics. Today, he was noted to have a low hemoglobin level and is scheduled for a transfusion. Overt bleeding is not noted. Concomitantly, he developed rapid atrial fibrillation and a blood pressure 70 systolic and prompting this consultation. PAST MEDICAL HISTORY: Parkinson disease, prostatic hypertrophy, cerebrovascular disease with prior cerebrovascular accident, hypertension, and peripheral artery disease with amputation on the right. ALLERGIES: Codeine. SOCIAL HISTORY: No record of smoking, alcohol, or substance abuse. FAMILY HISTORY: Unknown. REVIEW OF SYSTEMS: Cannot be reliably obtained at this time. MEDICATIONS: Prior to admission, reviewed and reconciled. PHYSICAL EXAMINATION: GENERAL: Ill appearing, on ventilator support via endotracheal tube. VITAL SIGNS: Blood pressure 73/40, heart rate 130, respiratory rate 24, afebrile, and T-max 100.9. LUNGS: Bilateral breath sounds. Scattered rhonchi. HEART: Irregularly irregular rhythm. Rapid rate. Normal S1 and S2. ABDOMEN: Soft. No guarding. No rebound. EXTREMITIES: No edema. EXTREMITIES: Right BKA stump clean and dry. Catheter in the left groin noted. LABORATORY DATA: White count 12.7 and hemoglobin 9.5 on admission. Today, white count 13.3 and hemoglobin 7.2. Sodium is 150, potassium 3.5, bicarbonate 17, BUN 22, and creatinine 0.8. Lactic acid 3.7. IMPRESSION: 1. Respiratory failure. 2. Atrial fibrillation with rapid ventricular response. 3. Shock. 4. Sepsis. 5. Pneumonia. 6. Lactic acidosis. 7. Dehydration. 8. Hypernatremia, 9. Hyperchloremia. 10. Severe anemia. 11. Acute myocardial ischemia. PLAN: 1. Ventilator support. 2. Broad-spectrum antibiotic. 3. Repeat ABG and adjust ventilator accordingly. 4. Digitalize. 5. Volume resuscitation. 6. Transfuse to hemoglobin above 8 g. 7. DVT prophylaxis. 8. Stress ulcer prophylaxis. 9. Hold antihypertensive. 10. Condition is critical. 11. Prognosis is guarded. aGge Hollingsworth M.D. DR: CARTER JOB#: [id number] CC:
[2016-12-18 06:00] LABS: MEAN CORPUSCULAR HEMOGLOBIN 24.3 PG (27.0-31.0); MEAN CORPUSCULAR HGB CONC 30.9 G/DL (32.0-36.0); MEAN CORPUSCULAR VOLUME 79 FL (80-99); MEAN PLATELET VOLUME 5.3 FL (6.5-10.1); PLATELET COUNT 374 K/UL (150-450); RED BLOOD COUNT 4.05 M/UL (4.70-6.10); RED CELL DISTRIBUTION WIDTH 18.9 % (11.6-14.8); WHITE BLOOD COUNT 13.5 K/UL (4.8-10.8)
[2016-12-18] MEDS: Metoprolol 50mg tab NG SCH ×2 (06:00→18:00)
[2016-12-18] MEDS: Piperacillin/Tazobactam 3.375 GM in NS 110 ML IV SCH (06:01)
[2016-12-18 06:15] LABS: MAGNESIUM 1.9 mg/dL (1.7-2.5)
[2016-12-18 06:23] LABS: ANION GAP 17 (5-15); CALCIUM 8.1 mg/dL (8.6-10.2); CARBON DIOXIDE 17 mEQ/L (20-30); CHLORIDE 110 mEQ/L (98-107); CREATININE 0.7 mg/dL (0.7-1.2); HEMOLYSIS 0; POTASSIUM 3.7 mEQ/L (3.4-4.9); SODIUM 144 mEQ/L (135-145)
[2016-12-18 06:42] LABS: REFLEX LACTIC ACID YES OR NO YES
[2016-12-18 06:45] LABS: TROPONIN I < 0.30 ng/mL (<=0.30)
--- NOTE | 2016-12-18 08:34 | General Progress Note ---
Assessment/Plan Assessment/Plan ASSESSMENT: 1. History of hypertension. 2. Parkinson disease. 3. Benign prostatic hypertrophy. 4. CVA. 5. Right leg amputation 6. decubitus ulcers 7. sepsis 8. lactic acidemia 9. anemia 10. hypernatremia 11. bcx + coag negative staph 12. UTI 13. polymicrobial respiratory infection 14. Atrial fib 15. acute on chronic encephalopathy PLAN transfused with improvement Head CT rate control iv antibiotics ventilator management feeds hypotonic fluids with caution transfer to [place] if accepted Subjective Allergies: Coded Allergies: CODEINE (Unverified Allergy, Unknown, 12/16/16) Subjective atrial fib; now back in NSR reduced LOC Objective Last 24 Hour Vital Signs Date Time Temp Pulse Resp B/P Pulse Ox O2 Delivery O2 Flow Rate FiO2 12/18/16 07:33 75 19 30 12/18/16 07:00 77 21 114/57 100 Mechanical Ventilator 30 12/18/16 06:00 81 21 131/62 100 Mechanical Ventilator 30 12/18/16 06:00 83 131/62 12/18/16 05:17 83 20 30 12/18/16 05:00 82 20 131/62 100 Mechanical Ventilator 30 12/18/16 04:00 82 12/18/16 04:00 30 12/18/16 04:00 97.9 82 22 122/60 100 Mechanical Ventilator 30 12/18/16 03:30 89 23 30 12/18/16 03:00 80 20 117/56 100 Mechanical Ventilator 30 12/18/16 02:00 87 20 117/74 100 Mechanical Ventilator 30 12/18/16 01:30 83 20 30 12/18/16 01:00 82 19 121/63 100 Mechanical Ventilator 30 12/18/16 00:00 30 12/18/16 00:00 87 12/18/16 00:00 97.6 85 22 132/64 100 Mechanical Ventilator 30 12/17/16 23:30 86 26 30 12/17/16 23:00 82 21 98/55 100 Mechanical Ventilator 30 12/17/16 22:00 107 21 91/56 100 Mechanical Ventilator 30 12/17/16 21:59 125 12/17/16 21:30 136 29 30 12/17/16 21:00 133 24 71/51 100 Mechanical Ventilator 30 12/17/16 20:58 128 12/17/16 20:00 120 12/17/16 20:00 97.6 135 25 67/48 100 Mechanical Ventilator 30 12/17/16 20:00 30 12/17/16 20:00 45 12/17/16 19:30 165 28 30 12/17/16 18:53 91 25 100 Mechanical Ventilator 30 12/17/16 18:33 145 113/93 12/17/16 17:17 165 28 30 12/17/16 15:09 89 28 30 12/17/16 13:25 93 27 30 12/17/16 13:08 97 12/17/16 13:00 98.2 94 26 101/56 100 Mechanical Ventilator 12/17/16 12:00 98.8 102 26 95/53 100 Mechanical Ventilator 30 12/17/16 11:05 106 20 30 12/17/16 11:00 101 24 105/62 100 Mechanical Ventilator 30 12/17/16 10:00 100 23 107/66 100 Mechanical Ventilator 30 12/17/16 09:13 99 25 30 12/17/16 09:00 98 19 110/61 100 Mechanical Ventilator 30 Intake and Output 12/17/16 12/18/16 19:00 07:00 Intake Total 1475.7 ml 2582.916 ml Output Total 350 ml 420 ml Balance 1125.7 ml 2162.916 ml Intake IV Total 1175.7 ml 2312.916 ml Tube Feeding 20 ml Blood Product 250 ml Other 300 ml Output Urine Total 350 ml 420 ml # Bowel Movements 1 Laboratory Tests 12/17/16 09:10: Arterial Blood pH 7.446, Arterial Blood Partial Pressure CO2 24.0*L, Arterial Blood Partial Pressure O2 121.9H, Arterial Blood HCO3 16.2L, Arterial Blood Oxygen Saturation 98.5H, Arterial Blood Base Excess -6.9, Nolberto Test Positive 12/17/16 19:58: Vancomycin Level Trough 19.6H 12/17/16 20:45: Arterial Blood pH 7.426, Arterial Blood Partial Pressure CO2 22.2*L, Arterial Blood Partial Pressure O2 152.5H, Arterial Blood HCO3 14.3L, Arterial Blood Oxygen Saturation 98.7H, Arterial Blood Base Excess -8.6, Nolberto Test Positive 12/18/16 03:45: White Blood Count 13.5H, Red Blood Count 4.05L, Hemoglobin 9.8#L, Hematocrit 31.8#L, Mean Corpuscular Volume 79L, Mean Corpuscular Hemoglobin 24.3L, Mean Corpuscular Hemoglobin Concent 30.9L, Red Cell Distribution Width 18.9H, Platelet Count 374, Mean Platelet Volume 5.3L, Neutrophils (%) (Auto) , Lymphocytes (%) (Auto) , Monocytes (%) (Auto) , Eosinophils (%) (Auto) , Basophils (%) (Auto) , Neutrophils % (Manual) [Pending], Lymphocytes % (Manual) [Pending], Platelet Estimate [Pending], Platelet Morphology [Pending], Sodium Level 144, Potassium Level 3.7, Chloride Level 110H, Carbon Dioxide Level 17L, Anion Gap 17H, Blood Urea Nitrogen 19, Creatinine 0.7, Estimat Glomerular Filtration Rate , Glucose Level 76, Lactic Acid Level 2.60H, Calcium Level 8.1L , Magnesium Level 1.9, Troponin I < 0.30, Pro-B-Type Natriuretic Peptide 1949H Height (Feet): 5 Height (Inches): 8.00 Weight (Pounds): 124 Objective WDWN NAD; reduced LOC clear breath sounds bilaterally without rhonchi or wheeze [id number] without MRG NABS nontender no HSM no CCE nonfocal MEAGHAN CARD December 18, 2016 08:34
--- NOTE | 2016-12-18 09:10 | Diagnostic Imaging Report ---
Indications: Shortness of breath Technique: Portable AP chest Findings: Comparison: 12/17/16 Left lung volume loss persists with perihilar interstitial infiltrate, patchy consolidative opacity in retrocardiac region. Mild blunting of left costophrenic angle persists. Right lung and pleura remain clear. Heart size and pulmonary vasculature remain within normal limits. Lines and tubes remain in place. IMPRESSION: Stable left lung volume loss, nonspecific interstitial disease, retrocardiac atelectasis with or without pneumonia Adjacent left pleural effusion not excludable, unchanged
[2016-12-18] MEDS: Docusate 100mg/10ml Liq GT SCH ×2 (09:22→18:00)
[2016-12-18] MEDS: Aspirin Baby 81mg NG SCH (09:23)
[2016-12-18] MEDS: Miralax 17gm pkt NG SCH (09:25)
[2016-12-18] MEDS: Multivitamins W/Minerals 15 ML UDC GT SCH (09:25)
[2016-12-18] MEDS: Heparin 5000 units/ml inj SUBQ SCH (09:25)
[2016-12-18] MEDS: KCl 10% 20 mEq/15ml liquid NG SCH (09:26)
[2016-12-18] MEDS: Sinemet 25/100 tab NG SCH ×3 (09:27→18:07)
[2016-12-18] MEDS: Artificial Tears 1.4% Op Soln BOTH EYES SCH ×3 (09:27→18:07)
[2016-12-18] MEDS: Vancomycin 750mg/D5W 275ml IVPB SCH ×2 (09:33)
[2016-12-18 09:40] LABS: ANISOCYTOSIS 1+; BAND NEUTROPHILS % (MANUAL) 0 % (0-8); BASOPHILS % (MANUAL) 0 % (0-2); EOSINOPHILS % (MANUAL) 0 % (0-3); LYMPHOCYTES % (MANUAL) 6 % (20-45); NEUTROPHILS % (MANUAL) 91 % (45-75); PLATELET ESTIMATE ADEQUATE; PLATELET MORPHOLOGY NORMAL; TOTAL CELLS COUNTED 100
[2016-12-18 09:41] LABS: HYPOCHROMASIA 1+; MICROCYTES 1+
[2016-12-18] MEDS ORDERED: NS 550ML IV ONE (10:51)
[2016-12-18] MEDS ORDERED: 1/2 NS 1000ml IV ONE ×2 (10:51→19:54)
[2016-12-18] MEDS ORDERED: NS 275ml ONE ×2 (10:51→19:54)
[2016-12-18] MEDS ORDERED: Tubing IV Secondary IV ONE (10:51)
[2016-12-18] MEDS ORDERED: Tubing Blood Filter IV ONE ×2 (10:51→19:54)
[2016-12-18 11:10] LABS: OTHERS PATHOLOGIST COMMENT
--- NOTE | 2016-12-18 12:01 | Cardiology Report ---
APPROVED REPORT EKG Measurement Heart [id number] Sinus tachycardia with fusion complexes Left axis deviation Septal infarct, age undetermined T wave abnormality, consider anterior ischemia Abnormal ECG
[2016-12-18] MEDS ORDERED: Digoxin 0.125mg tab NG SCH (13:00)
--- NOTE | 2016-12-18 13:03 | Infectious Diseases Prog Note ---
"Assessment/Plan Assessment/Plan antibiotics : vancomycin iv, zosyn A 1. e.coli UTI 2. staph aureus | gram negative pneumonia 3. + blood cultures with coag neg staph likely contaminated 4. respiratory failure 5. leucocytosis P 1. continue iv vancomycin 2. d/c zosyn 3. start meropenem 4. will follow up cultures Subjective ROS Limited/Unobtainable: Yes Allergies: Coded Allergies: CODEINE (Unverified Allergy, Unknown, 12/16/16) Objective Vital Signs Last 24 Hour Vital Signs Date Time Temp Pulse Resp B/P Pulse Ox O2 Delivery O2 Flow Rate FiO2 12/18/16 12:00 85 12/18/16 12:00 98.4 83 14 109/59 100 Mechanical Ventilator 30.0 35 83 12/18/16 12:00 30 12/18/16 11:00 83 14 108/61 100 Mechanical Ventilator 30.0 35 83 12/18/16 10:53 81 27 35 12/18/16 10:00 79 14 106/55 100 Mechanical Ventilator 30.0 35 86 12/18/16 09:00 79 14 100/52 100 Mechanical Ventilator 30.0 35 79 12/18/16 08:55 83 27 35 12/18/16 08:00 30 12/18/16 08:00 82 12/18/16 08:00 98.7 79 20 108/57 100 Mechanical Ventilator 30.0 30 12/18/16 07:33 75 19 30 12/18/16 07:00 77 21 114/57 100 Mechanical Ventilator 30 12/18/16 06:00 81 21 131/62 100 Mechanical Ventilator 30 12/18/16 06:00 83 131/62 12/18/16 05:17 83 20 30 12/18/16 05:00 82 20 131/62 100 Mechanical Ventilator 30 12/18/16 04:00 82 12/18/16 04:00 30 12/18/16 04:00 97.9 82 22 122/60 100 Mechanical Ventilator 30 12/18/16 03:30 89 23 30 12/18/16 03:00 80 20 117/56 100 Mechanical Ventilator 30 12/18/16 02:00 87 20 117/74 100 Mechanical Ventilator 30 12/18/16 01:30 83 20 30 12/18/16 01:00 82 19 121/63 100 Mechanical Ventilator 30 12/18/16 00:00 30 12/18/16 00:00 87 12/18/16 00:00 97.6 85 22 132/64 100 Mechanical Ventilator 30 12/17/16 23:30 86 26 30 12/17/16 23:00 82 21 98/55 100 Mechanical Ventilator 30 12/17/16 22:00 107 21 91/56 100 Mechanical Ventilator 30 12/17/16 21:59 125 12/17/16 21:30 136 29 30 12/17/16 21:00 133 24 71/51 100 Mechanical Ventilator 30 12/17/16 20:58 128 12/17/16 20:00 120 12/17/16 20:00 97.6 135 25 67/48 100 Mechanical Ventilator 30 12/17/16 20:00 30 12/17/16 20:00 45 12/17/16 19:30 165 28 30 12/17/16 18:53 91 25 100 Mechanical Ventilator 30 12/17/16 18:33 145 113/93 12/17/16 17:17 165 28 30 12/17/16 15:09 89 28 30 12/17/16 13:25 93 27 30 12/17/16 13:08 97 12/17/16 13:00 98.2 94 26 101/56 100 Mechanical Ventilator Height (Feet): 5 Height (Inches): 8.00 Weight (Pounds): 124 HEENT: other - intubated Respiratory/Chest: lungs clear Cardiovascular: normal rate, regular rhythm, no gallop/murmur Abdomen: soft, non tender Extremities: no edema, other - right stump clean, left groin catheter Microbiology Date/Time Source Procedure Growth Status 12/16/16 08:30 Blood Blood Culture - Preliminary NO GROWTH AFTER 24 HOURS Resulted 12/16/16 08:15 Blood Blood Culture - Preliminary Staphylococcus Sp Coag Neg Resulted 12/16/16 14:35 Sputum Gram Stain - Final Resulted 12/16/16 14:35 Sputum Culture - Preliminary Staphylococcus Aureus Gram Negative Bacillus 1 Resulted 12/16/16 10:40 Nasal Nares MRSA Culture - Final NO METHICILLIN RESISTANT STAPH AUREUS... Complete 12/16/16 08:30 Urine,Clean Catch Urine Culture - Preliminary Escherichia Coli - Esbl Resulted 12/16/16 10:40 Rectum VRE Culture - Final NO VANCOMYCIN RESISTANT ENTEROCOCCUS ... Complete Laboratory Tests Test 12/17/16 19:58 12/17/16 20:45 12/18/16 03:45 12/18/16 09:40 Vancomycin Level Trough 19.6 ug/mL (5.0-12.0) H Arterial Blood pH 7.426 (7.350-7.450) Arterial Blood Partial Pressure CO2 22.2 mmHg (35.0-45.0) *L Arterial Blood Partial Pressure O2 152.5 mmHg (75.0-100.0) H Arterial Blood HCO3 14.3 mmol/L (22.0-26.0) L Arterial Blood Oxygen Saturation 98.7 % (92.0-98.0) H Arterial Blood Base Excess -8.6 Nolberto Test Positive White Blood Count 13.5 K/UL (4.8-10.8) H Red Blood Count 4.05 M/UL (4.70-6.10) L Hemoglobin 9.8 G/DL (14.2-18.0) #L Hematocrit 31.8 % (42.0-52.0) #L Mean Corpuscular Volume 79 FL (80-99) L Mean Corpuscular Hemoglobin 24.3 PG (27.0-31.0) L Mean Corpuscular Hemoglobin Concent 30.9 G/DL (32.0-36.0) L Red Cell Distribution Width 18.9 % (11.6-14.8) H Platelet Count 374 K/UL (150-450) Mean Platelet Volume 5.3 FL (6.5-10.1) L Neutrophils (%) (Auto) % (45.0-75.0) Lymphocytes (%) (Auto) % (20.0-45.0) Monocytes (%) (Auto) % (1.0-10.0) Eosinophils (%) (Auto) % (0.0-3.0) Basophils (%) (Auto) % (0.0-2.0) Differential Total Cells Counted 100 Neutrophils % (Manual) 91 % (45-75) H Lymphocytes % (Manual) 6 % (20-45) L Monocytes % (Manual) 3 % (1-10) Eosinophils % (Manual) 0 % (0-3) Basophils % (Manual) 0 % (0-2) Band Neutrophils 0 % (0-8) Platelet Estimate Adequate Platelet Morphology Normal Hypochromasia 1+ Anisocytosis 1+ Microcytosis 1+ Sodium Level 144 mEQ/L (135-145) Potassium Level 3.7 mEQ/L (3.4-4.9) Chloride Level 110 mEQ/L (98-107) H Carbon Dioxide Level 17 mEQ/L (20-30) L Anion Gap 17 (5-15) H Blood Urea Nitrogen 19 mg/dL (7-23) Creatinine 0.7 mg/dL (0.7-1.2) Estimat Glomerular Filtration Rate mL/min (>60) Glucose Level 76 mg/dL (74-106) Lactic Acid Level 2.60 mmol/L (0.66-2.22) H 2.00 mmol/L (0.66-2.22) Calcium Level 8.1 mg/dL (8.6-10.2) L Magnesium Level 1.9 mg/dL (1.7-2.5) Troponin I < 0.30 ng/mL (<=0.30) Pro-B-Type Natriuretic Peptide 1949 pg/mL (0-450) H GUNNAR BROWNING December 18, 2016 13:03"
[2016-12-18] MEDS ORDERED: Meropenem 500 MG in NS 55 ML IVPB SCH (14:30)
--- NOTE | 2016-12-18 15:12 | Diagnostic Imaging Report ---
Indications: Altered level of consciousness Technique: Continuous helical CT imaging of the brain was performed with automatic exposure control on a Siemens sensation [address] scanner. Axial and coronal images were reconstructed at 5 mm slice thickness and interval. CTDI volume(s): 70 mGy Total DLP: 1452 mGy-cm Findings: Comparison: 01/06/11 Well-defined focus of low attenuation/parenchymal loss now present in the posterior aspect of right cerebellar hemisphere. Chronic microvascular ischemic changes throughout bilateral cerebral periventricular and deep white matter, diffuse atrophy unchanged.. No evidence of mass or hemorrhage, other attenuation abnormality, mass effect, midline shift, hydrocephalus or increased intracranial pressure. Bone window images are unremarkable. Focal opacification of left posterior ethmoid sinus air cell again noted. Remainder visualized paranasal sinuses and mastoid air cells are clear. IMPRESSION: No evidence of acute intracranial pathology, unchanged Interval development of right cerebellar hemispheric encephalomalacia, chronic in appearance, likely old infarct Bilateral cerebral periventricular and deepwhite matter low attenuation, nonspecific, likely chronic microvascular ischemic in nature, stable. Atrophy, stable Mild sinus disease, stable The CT scanner at [facility] is accredited by the [employer] and the scans are performed using protocols designed to limit radiation exposure to as low as reasonably achievable to attain images of sufficient resolution adequate for diagnostic evaluation.
--- NOTE | 2016-12-18 18:29 | Progress Note ---
DATE: 12/18/2016 CARDIOLOGY PROGRESS NOTE SUBJECTIVE: The patient remains on ventilator support. Poorly responsive. Atrial fibrillation with rapid ventricular response noted last evening and has converted following fluid boluses, packed red blood cell transfusion, and digoxin. OBJECTIVE: VITAL SIGNS: Blood pressure 108/57, pulse 82, and respirations 20. Diffuse edema. NECK: Thick trach secretions. LUNGS: Bilateral breath sounds with rhonchi. HEART: Regular rhythm and rate. Normal S1 and S2. There is no murmur. EXTREMITIES: There is no calf tenderness or cords. LABORATORY DATA: Sodium 144, potassium 3.7, bicarbonate 17, BUN 19, and creatinine 0.7. Lactic acid 2.6. Magnesium 1.9. Pro-natriuretic peptide 1949. Troponin less than 0.3. White count is 13.5 and hemoglobin 9.8 posttransfusion. Chest x-ray today reveals slight volume loss in the left lung, nonspecific interstitial disease. IMPRESSION: 1. Respiratory failure. 2. Paroxysmal atrial fibrillation. 3. Severe anemia status post transfusion. 4. Acute myocardial ischemia. 5. Lactic acidosis. 6. Sepsis with shock. 7. Healthcare-acquired pneumonia. 8. Dehydration. 9. Hypernatremia. 10. Hypovolemia. 11. Urinary tract infection. PLAN: 1. Broad-spectrum antibiotics per Infectious Disease recruitment consultant. 2. Ventilator support. 3. Continue hydration. 4. Serial lactic acids. 5. Monitor hemoglobin. 6. Monitor volume status. 7. Trend natriuretic peptide assay. 8. DVT and stress ulcer prophylaxes. 9. Continue digoxin for prophylaxis against rapid atrial fibrillation. Gage Hollingsworth M.D. DR: SHANE JOB#: [id number] CC:
[2016-12-18] MEDS ORDERED: Vancomycin 500 MG in D5W 110 ML IV SCH (21:00)
--- NOTE | 2016-12-19 11:04 | Discharge Summary ---
Discharge Summary Hospital Course Date of Admission December 16, 2016 at 09:22 Date of Discharge December 18, 2016 at 19:55 Admitting Diagnosis RESPIRATORY FAILURE HPI Andres Bowers is a 81 year old male who was admitted on December 16, 2016 at 09:22 for Respiratory Failure Hospital Course dc summary #[id number] Discharge Condition Upon Discharge: stable Discharge Disposition Patient was discharged to [facility] via [facility] ambulance Discharge Diagnoses: Discharge Instructions Discharge Instructions Special Instructions I have been assigned to complete a D/C Summary on this account. I was not involved in the patient management Negra Owusu NP (Vanchtein) December 19, 2016 11:04
--- NOTE | 2016-12-20 02:59 | Discharge Summary 2 SIG ---
DATE OF ADMISSION: 12/16/2016 DATE OF DISCHARGE: 12/18/2016 REASON FOR ADMISSION: 81-year-old male with a history of hypertension, Parkinson disease, CVA, BPH, and right leg amputation, [facility] failure. The patient was tachypneic with decreased and shallow breath sounds and absence of gag reflux. The patient required urgent intubation and placement of central line The patient had a fever-100.9. White blood count - 12.7. Lactic acid - 5. Troponin was negative. EKG revealed sinus tachycardia. Chest x-ray revealed left upper lobe infiltrate. The patient was tachycardic - 122. Urinalysis was positive for pyuria and +2 leukocyte esterase, but few bacteria. Hemoglobin -9.5 and hematocrit -32.6. Sodium- 150 and BUN -30. The Patient started on fluid resuscitation, pancultured and transferred to ICU for further management. ADMITTING DIAGNOSES: 1. Severe sepsis. 2. Acute hypoxemic respiratory failure, requiring intubation. 3. Pneumonia. 4. Possible urinary tract infection. HOSPITAL COURSE: The patient was admitted to intensive care unit. Ventilator support was provided. Ventilator settings were titrated based on ABG. Pulmonary toilet in the form of nebulizing treatment was provided. The patient was pancultured in ED and started on empiric antibiotics. ID consult was requested. Urine culture grew E. coli ESBL. Sputum culture grew MRSA and Pseudomonas. Antibiotic regimen was optimized by ID based on culture and sensitivity. The patient was on the IV fluids. Cardiology consult was requested. The patient exhibited evidence of paroxysmal atrial fibrillation on the monitor. After digoxin, converted to sinus rhythm, heart dorita controlled. Per Cardiology, continue digoxin to prevent rapid ventricular response. Prior to transfer, the patient was in sinus rhythm. Hypotonic IV solution was provided due to hypernatremia. Cardiorenal parameters and volume status were closely monitored. The patient received nutrition via oropharyngeal tube. The patient was noted to have anemia. The patient required transfusion of two units packed red blood cells for hemoglobin -7.2 and hematocrit- 24.2. Prior to transfer, hemoglobin was 9.8 and hematocrit -31.8. The patient still exhibit leukocytosis of 13.5. CT of the head revealed no acute intracranial pathology, but demonstrated right cerebellar hemispheric encephalomalacia chronic in appearance likely old infarct. Chest x-ray prior to transfer revealed retrocardiac atelectasis with or without pneumonia with nonspecific interstitial disease and stable left lung volume loss, possible adjacent left pleural effusion. DVT and GI prophylaxis provided. BUN down to 19 with IV hydration. Lactic acid down to 2. Another troponin was checked and was negative. EKG read by slasher tender showed sinus tachycardia with fusion complexes, septal infarct, age undetermined, T-wave abnormality, and possible anterior ischemia. The patient was stable for transfer via [facility] ambulance to [facility], as per insurance. DISCHARGE DIAGNOSES: 1. Severe sepsis. 2. Acute hypoxemic respiratory failure requiring intubation. 3. Pneumonia with methicillin resistant Staphylococcus aureus and Pseudomonas. 4. Urinary tract infection with Escherichia coli Extended-Spectrum Beta-Lactamase. 5. Anemia, status post blood transfusion. 6. Dehydration. 7. Acute myocardial ischemia. 8. Paroxysmal atrial fibrillation, -resolved. 9. Hypernatremia , likely secondary to dehydration. 10. Dehydration. 11. History of cerebrovascular accident. 12. Parkinson disease. 13. Right leg amputation. DISCHARGE MEDICATIONS: medication list was sent with the patient DISCHARGE INSTRUCTIONS: The patient was transferred via [facility] ambulance to [place]. Follow up with medical doctor at the hospital. Javad Knight M.D. I have been assigned to dictate discharge summary on this account and I was not involved in the patient's management. Negra Owusu (Vanchtein) N.PChong DR: MAIRA JOB#: [id number] CC: FAUSTINO
== END 2016-12-18 19:55 | disposition short-term general hospital (02) | DRG 871 ==
LOC: EDBD 08:13 → EMR 08:55 → ICU 09:22 → EDBEDREQ 09:41
PROC: 0BH17EZ Insertion of Endotracheal Airway into Trachea, Via Natural or Artificial Opening (ICD-10-PCS; principal; 2016-12-16)
PROC: 5A1945Z Respiratory Ventilation, 24-96 Consecutive Hours (ICD-10-PCS; principal; 2016-12-16)
PROC: 06HM33Z Insertion of Infusion Device into Right Femoral Vein, Percutaneous Approach (ICD-10-PCS; principal; 2016-12-16)
PROC: 30233N1 Transfusion of Nonautologous Red Blood Cells into Peripheral Vein, Percutaneous Approach (ICD-10-PCS; 2016-12-17)
DX: A41.9 Sepsis, unspecified organism (principal); R65.21 Severe sepsis with septic shock; J96.01 Acute respiratory failure with hypoxia; G93.40 Encephalopathy, unspecified; E87.0 Hyperosmolality and hypernatremia; J15.212 Pneumonia due to Methicillin resistant Staphylococcus aureus; J15.1 Pneumonia due to Pseudomonas; I48.0 Paroxysmal atrial fibrillation; I24.9 Acute ischemic heart disease, unspecified; N39.0 Urinary tract infection, site not specified; G20 Parkinson's disease; N40.0 Benign prostatic hyperplasia without lower urinary tract symptoms; D64.9 Anemia, unspecified; E87.8 Other disorders of electrolyte and fluid balance, not elsewhere classified; E86.0 Dehydration; I51.3 Intracardiac thrombosis, not elsewhere classified; Z89.611 Acquired absence of right leg above knee; Z86.73 Personal history of transient ischemic attack (TIA), and cerebral infarction without residual deficits
CPT/HCPCS: 36415; 36600; 70450; 71010; 74000; 80048; 80053; 80202; 81003; 82550; 82553; 82803; 82962; 83605; 83690; 83735; 83880; 84484; 85007; 85025; 85610; 85730; 86850; 86900; 86901; 86920; 87040; 87070; 87081; 87086; 87181; 87184; 87205; 93005; 94002; 94003; 94664